=== PATIENT | female | born 1990 | race Two or more races ===

== ENCOUNTER 2023-03-03 20:08 | Emergency (ER) | payer OTHER ==
[~2023-03-03] VITALS: Ht 170.2 cm; Wt 79.4 kg
== END 2023-03-04 03:02 | disposition home or self-care (01) ==
LOC: ER 20:08
DX: O20.8 Other hemorrhage in early pregnancy (principal); O26.851 Spotting complicating pregnancy, first trimester; Z3A.01 Less than 8 weeks gestation of pregnancy